=== PATIENT | male | born 2000 | race Caucasian/White ===

== ENCOUNTER 2024-08-31 10:41 | Outpatient (OUT) | payer BC, SELFPAY ==
--- OUTSIDE RECORDS SUMMARY | 2022-08-24 09:15 | XMS_ITS | Continuity of Care Document ---
Author Organization [facility] Address [address] [place] [address] Phone Care Team Providers Care Carpet Cleaner Name Role Phone Juan Pablo Boyd DMD Unavailable Unavailable Allergies, Adverse Reactions, Alerts Substance Reaction Status Criticality No Known Allergies Active No Inform ation Medications Medication Instructions Dosage Effective Dates (start - stop) Status Comments No Drug Therapy Prescribed Problems Condition Type Effective Dates (start - stop) Clini jakob Status Comments No Known Problems Procedures Procedure Date Oral Hygiene Instruction Resin Composite 2s; Posterior 3 Resin Composite 2s; Posterior 3 Intraoral-complete Series (bw) Oral Hygiene Instruction Comp Oral Eval New/estab Patient 2022 Imm Admin Through 16 Yrs Of Age 016 FLU VAC NO PRSV 4 TYLER 3 YRS+ Imm Admin Through 16 Yrs Of Age 016 Meningococcal Conjugate Vaccine 016 Imm Admin Through 16 Yrs Of Age 016 HPV 9 Valent Imm Admin Through 16 Yrs Of Age 016 MENB RP W/OMV VACCINE IM PREV VISIT, NEW, AGE 12-17 Imm Admin Through 16 Yrs Of Age 016 HPV VACCINE NON VALENT IM Imm Admin Through 16 Yrs Of Age 016 FLU VAC NO PRSV 4 TYLER 3 YRS+ Imm Admin Through 16 Yrs Of Age 016 MENINGOCOCCAL VACCINE, IM Imm Admin Through 16 Yrs Of Age 016 MENB RP W/OMV VACCINE IM Imm Admin Through 16 Yrs Of Age 016 CHICKEN POX VACCINE, SC PREV VISIT, EST, AGE 12-17 HEP A VACC, PED/ADOL, 2 DOSE FLU VACCINE, 3 YRS & >, IM OFFICE/OUTPATIENT VISIT, EST MEASURE BLOOD OXYGEN LEVEL NEW OFFICE VISIT LEVEL 2 OFFICE/OUTPATIENT VISIT, EST OFFICE/OUTPATIENT VISIT, EST HEP A VACC, PED/ADOL, 2 DOSE HEPB VACC PED/ADOL 3 DOSE IM FLU VACCINE, 3 YRS & >, IM Menveo TDAP VACCINE >7 IM Advance Directives Directive Yes / No Effective Date File Name No Information Encounters Encounter Description Practice Location Reason(s) For Visit Diagnoses Date Provider Providers Copied on Encounter [facility], [address] [place] [address], [id number] , tel: [phone] Dental Clinic FIll (chief complaint) [facility] for [facility] disorders [facility] [address] [place] [address], [id number] , [place]. tel: [phone] [facility], [address] [place] [address], [id number] , [place] tel: [phone] Dental Clinic En[facility] disorders [facility]. [address] [place] [address], [id number] , [place]. tel: [phone] PREV VISIT, NEW, AGE 12-17 [facility], [address] [place] [address], [id number] , tel: [phone] [facility] work physical (chief complaint) immunizati on (chief complaint) Encounter for routine child health exam w abnormal findingsIrregular sleep habitPediatric BMI greater than or equal to 95th percentile for ageOverweight or Obesity 6 Ricardo Andrews . [address] [place] [address], [id number], [place]. tel: [phone] OFFICE/OUTPA TIENT VISIT, [facility], [address] [place] [address], [id number] , [place] tel: [phone] [facility] physical (sport) (chief complaint) Other general medical examination for administrative purposesExercise induced bronchospasmObesity 2 Maribel Perez. [address] [place] [address], [id number] , . NEW OFFICE VISIT LEVEL 2 [facility], [address] [place] [address], [id number] , tel: [phone] [facility] ear pain (chief complaint) sore throat (chief complaint) OtherUnspecified otitis mediaPharyngitis, Acute 2 Hemmer Ana. [address] [place] [address], [id number] , [place]. OFFICE/OUTPA TIENT VISIT, [facility], [address] [place] [address], [id number] , tel: [phone] [facility] Need for prophylactic vaccination and inoculation against viralhepatitisInfluen za VaccineNeed for prophylactic vaccination and inoculation against other specified single bacterial diseaseNeed for prophylactic vaccination with combined njrucczeyh-dcvtigo-dx rtussis (DTP) (DTaP) vaccine 2 Neel Martell. [address] [place] [address], [id number] , [place]. tel: [phone] Family History Family Member Type Diagnosis Age At Onset Father Problem (finding) Alive and well Brother Problem (finding) Alive and well Mother Problem (finding) Alive and well Immunizations Vaccine Date Status Comments MCV4 administered Source: New Imm unization Record HPV (9-valent) administered Source: New I mmunization Record Influenza virus vaccine, injectable, quadrivalent, split virus, preservative free, 3 years or older Fluarix, Flulaval or Fluzone Quad 5700-9922 administered Source: New Immuniza tion Record meningococcal B, OMV, 2 dose schedule administered Source: New Immuniza tion Record Hep A (ped/adol, 2 dose) administered Livier rce: New Immunization Record Flu (split) (3 yrs or older) administered Source: New Immunization Record Hep A (ped/adol, 2 dose) administered Livier rce: New Immunization Record Tdap administered Source: New Imm unization Record MCV4 (11-55 yrs) administered Source: New Immunization Record Flu (split) (3 yrs or older) administered Source: New Immunization Record Hep B (ped/adol, 3 dose) administered Livier rce: New Immunization Record Payers Payer name Insurance type Covered democrat ID Edson mckeon(s) Tita [employer] 17 [id number] [facility] [id number] Medicaid Wrap - [employer] [id number] Social History Type Description Quantity Date Captured Comments Alcohol Use Details Unknown Caffeine Use Details Unknown Tobacco Use Status No Information Smoking Status No Information Sex Male Sexual Orientation Straight or heterosexual Gender Identity Male Vital Signs Date / Time: Height Weight BMI Pulse Rate Blood Pressure Temperature Respiratory Rate Body Surface Area Head Circumference Head Circ. Percentile Wt./Fabricio. Percentile BMI percentile Pulse Ox Inhaled Ox 1:17 PM 70 /min 116/75 mm[Hg] 98.20 F Chief Complaint And Reason For Visit From encounter dated '08/24/2022 13:15'. FIll (chief complaint). Description: filling Reason For Referral Reason For Referral No Information Plan Of Treatment Date Type Action Status Goal Depression screening. Due on due Goal PRAPARE ASSESSMENT. Due on J due Goal RLP. Due on due Goal TD Vaccine. Due on 23 due Goal Tdap due Goal Tdap Vaccine. Due on 2022 due Goal Influenza Vaccine. Due on due Goal Tdap due Goal HPV (). Due on 6 due Goal Depression screening. Due on due History Of Present Illness Encounter Date Complaint History Of Prese nt Illness FIll filling work physical Patient here wit h mother and brother for work permit. Patient's mother states that patient is having a hard time sleeping for about a year. Patient is getting immunizations as well. No other issues at this time. Nacho Brooks. immunization Functional Status Date Functional Assessmen t No Information Medications Administered Medication Instructions Dosage Effective Dates (start - stop) Status Comments No Drug Therapy Prescribed Instructions Date Instruction Additional Infor matvon No Information Assessments Type Assessment Date No Information Patient Care Teams Name Effective Dates (start - stop) Status Members No Information
--- OUTSIDE RECORDS SUMMARY | 2024-08-31 10:48 | XMS_ITS | Encounter Summary ---
Author Organization [facility] Address [address] [place] [address] Care Team Providers Care Assembler Molded Frames Name Role Phone Deena Cotton MD, IBCLC Primary Care Provid er Encounter Details Date Type Department Care Team (Late st Contact Info) Description 08/15/2024 Orders Only [facility] [address] [place] [address] Deena Cotton MD, IBCLC [address] [place] [address] Social History Tobacco Use Types Packs/Day Years Used Date Smoking Tobacco: Never Smokeless Tobacco: Never Sex and Gender Information Value Date Recorded Sex Assigned at Male 08/08/2024 3:19 PM EDT Legal Sex Male 7:21 PM EDT Gender Identity Male 08/08/2024 3:19 PM EDT Sexual Orientation Straight 08/08/2024 3: 19 PM EDT documented as of this encounter Plan of Treatment Upcoming Encounters Date Type Department Care Team (Late st Contact Info) Description 08/08/2025 3:00 PM EDT Office Visit [facility] [address] [place] [address] Deena Cotton MD, IBCLC [address] [place] [address] documented as of this encounter Visit Diagnoses Not on filedocumented in this encounter Care Teams Assembler Molded Frames Relationship Specialty Start Date End Date Deena Cotton MD, IBCLC [address] [id number] PCP - General Family Medicine 07/31/24 documented as of this encounter
--- OUTSIDE RECORDS SUMMARY | 2024-08-31 10:48 | XMS_ITS | Encounter Summary ---
Author Organization [facility] Address [address] [place] [address] Care Team Providers Care Caster Investment Casting Name Role Phone Deena Cotton MD, IBCLC Primary Care Provid er Encounter Details Date Type Department Care Team (Late st Contact Info) Description 08/27/2024 Abstract [facility] [address] [place] [address] Deena Cotton MD, IBCLC [address] [place] [address] Social History Tobacco Use Types [...] 08/08/2025 3:00 PM EDT Office Visit [facility] [address] [place] [address] Deena Cotton MD, IBCLC [address] [place] [address] documented as of this encounter Visit Diagnoses Not on filedocumented in this encounter Care Teams Caster Investment Casting Relationship Specialty Start Date End Date Deena Cotton MD, IBCLC [address] [place] [id number] PCP - General Family Medicine 07/31/24 documented as of this encounter
[2024-08-31 11:12] LABS: Basophils Percent Auto 0.7 % (0.2-2.0); Eosinophils Absolute Auto 0.2 10^3/uL (0.0-0.7); Eosinophils Percent Auto 4.4 % (0.9-7.0); Hemoglobin 14.9 g/dL (14.0-18.0); Immature Granulocytes Abs Auto 0.02 10^3/uL (0.00-0.03); Immature Granulocytes Pct Auto 0.4 % (0.0-0.5); Lymphocytes Absolute Auto 1.9 10^3/uL (1.2-3.8); Lymphocytes Percent Auto 41.5 % (20.5-60.0); Mean Corpuscular HGB Conc 36.3 g/dL (29.9-35.2); Mean Corpuscular Hemoglobin 32.7 pg (25.9-34.0); Mean Corpuscular Volume 89.9 fL (80.0-94.0); Mean Platelet Volume 9.3 fL (9.5-13.5); Monocytes Absolute Auto 0.4 10^3/uL (0.3-0.8); Monocytes Percent Auto 8.7 % (1.7-12.0); Neutrophils Percent Auto 44.3 % (43.0-75.0); Platelet Count 161 10^3/uL (150-450); Red Blood Count 4.56 10^6/uL (4.70-6.10); Red Cell Distribution Width 12.1 % (11.0-15.0); White Blood Count 4.6 10^3/uL (4.0-11.0)
[2024-08-31 11:41] LABS: Percent Iron Saturation 39.1 %
[2024-08-31 11:49] LABS: Alanine Aminotransferase 67 U/L (16-63); Albumin Globulin Ratio 1.1; Albumin Level 4.1 g/dL (3.4-5.0); Alkaline Phosphatase 81 U/L (46-116); Anion Gap 13.6; Aspartate Amino Transferase 29 U/L (15-37); BUN Creatinine Ratio 17.1; Calcium 9.1 mg/dL (8.5-10.1); Carbon Dioxide 25.5 mmol/L (21.0-32.0); Chloride 105 mmol/L (98-107); Chol HDL Ratio 2.7; Cholesterol 147 mg/dL (<=200); Estimated GFR (African America >60 (>=60 mL/min/1.73m^2); Estimated GFR (Non-African Ame >60 (>=60 mL/min/1.73m^2); Globulin 3.6 g/dL; Glucose 103 mg/dL (74-106); HDL Cholesterol 54 mg/dL (40-60); LDL Cholesterol Calculated 76.2 mg/dL; Potassium 4.1 mmol/L (3.5-5.1); Sodium 140 mmol/L (136-145); Thyroid Stimulating Hormone 1.646 uIU/mL (0.358-3.740); Total Protein 7.7 g/dL (6.4-8.2); Triglycerides 84 mg/dL (<=150); VLDL CHOLESTEROL 16.8 mg/dL
[2024-09-02 12:08] LABS: Vitamin B12 637 pg/mL (232-1245)
== END 2024-08-31 10:42 | disposition home or self-care (01) ==
PROVIDERS: PCP Student in an Organized Health Care Education/Training Program; Visit Provider Student in an Organized Health Care Education/Training Program
DX: Z00.00 Encounter for general adult medical examination without abnormal findings (principal); R53.83 Other fatigue; E66.812 Obesity, class 2; E66.09 Other obesity due to excess calories; Z68.39 Body mass index [BMI] 39.0-39.9, adult
CPT/HCPCS: 36415; 80053; 80061; 82306; 82607; 83540; 83550; 84443; 85025